=== PATIENT | female | born 1955 | race Caucasian/White ===

== ENCOUNTER → 2022-09-10 14:07 | Outpatient (BNVA) | payer BC, MEDICARE, SELFPAY | PROVIDERS: PCP Internal Medicine; Visit Provider Internal Medicine Rheumatology | DX: Z13.89 Encounter for screening for other disorder (principal) ==

== ENCOUNTER 2025-07-14 15:33 | Outpatient (AMB) | payer OTHER, MEDICARE, SELFPAY ==
--- NOTE | 2025-07-14 13:23 | A.OFFVIS_ITS ---
Intake Visit Reasons: follow up for stroke Allergies baclofen Allergy (Unknown, Verified 09/10/22 14:16) Unknown brimonidine (From Alphagan P) Allergy (Unknown, Verified 09/10/22 14:16) Unknown gabapentin Allergy (Unknown, Verified 09/10/22 14:16) Unknown insulin glargine (From Toujeo SoloStar U-300 Insulin) Allergy (Unknown, Verified 09/10/22 14:16) Unknown latex Allergy (Unknown, Verified 09/10/22 14:16) unknown levofloxacin Allergy (Unknown, Verified 09/10/22 14:16) unknown meperidine (From Demerol) Allergy (Unknown, Verified 09/10/22 14:16) Unknown metronidazole (From Flagyl) Allergy (Unknown, Verified 09/10/22 14:16) Unknown pregabalin (From Lyrica) Allergy (Unknown, Verified 09/10/22 14:16) Unknown Medication List - Last Reconciled 07/14/25 by Leigh Rivera MD acyclovir 200 mg PO DAILY PRN albuterol sulfate 90 mcg/actuation (ProAir HFA) 2 puffs inhalation Q4-6H PRN amlodipine 10 mg PO DAILY apixaban (Eliquis) 5 mg PO BID 30 days aspirin 81 mg PO DAILY atorvastatin 40 mg PO DAILY iwxhomnkwt-yccxgkmbeoask-kmqz 50-325-40 mg 1 tab PO Q4H PRN cholecalciferol (vitamin D3) 25 mcg PO DAILY ciclopirox 8% topical cyanocobalamin (vitamin B-12) 1,000 mcg PO DAILY dicyclomine 10 mg PO Q6H PRN dorzolamide-timolol 22.3-6.8 mg/mL (Cosopt) 1 drp ophthalmic (eye) BID dulaglutide (Trulicity) mg subcut famotidine 20 mg PO BID finasteride 2.5 mg PO DAILY furosemide 20 mg PO DAILY hydrochlorothiazide 25 mg PO DAILY hydrocodone-acetaminophen 5-325 mg 1 tab PO BID PRN insulin degludec (Tresiba FlexTouch U-100 insulin) 15 units subcut BEDTIME insulin detemir U-100 (Levemir FlexPen) 70 units subcut BEDTIME insulin lispro (Humalog KwikPen (U-100) Insulin) 1 sliding scale dose subcut USEASDIRECTD latanoprost 0.005% (Xalatan) 1 drp ophthalmic (eye) QPM levetiracetam 250 mg PO BID lidocaine 5% (Lidoderm) 2 patches topical DAILY lisinopril 40 mg PO DAILY loperamide 4 mg PO BID metformin 1,000 mg PO BID multivitamin with minerals 1 cap PO DAILY omeprazole 20 mg PO DAILY timolol 0.25% 1 drp ophthalmic (eye) DAILY HPI Comments Details: 69 yr old woman with h/o stroke, migraine, Sz and MCI. She fell 1 week ago and hit her head. She missed the bed as she was trying to sit to give medicine to her dog. Whole body hurts. headaches. tooth hurts. Memory is still not great. Forgetful and has trouble remembering appointments. Scared to drive. Loses things. Still has some lapses in time and waking confused. Not sleeping well at night. Gets palpitations.??She was seen at [facility] [place] 09/15/2023-09/17/2023 for TIA. Has marital issues with of 50 yrs. Has now moved to a small place with her and daughter. ?Hx of migraines in 20s. 05/01/23 CT showed new right temporal stroke with CTA showing occlusion of right M2 segment. MRA of neck did not show any vascular stenosis or occlusion. Has loss of sensation left hand. Before that she had a stroke on 03/26/23 - 03/29-, 04/04/23 - 04/06/23. Had numbness on L side of face, LUE heaviness, nausea/vomiting, felt floor was moving, difficulty ambulating. Symptoms occurred again with left sided numbness and dizziness and also right foot. Had multiple imaging studies. 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 She was seen by Dr. Khan, but no cause was found for the clotting. She had some vascular procedures done by Dr. Bo to recannulize it. Since then, she's had left arm pain.? She had an MRI of the cervical spine done 07/2021 which was apparently normal but the report is not available. ON LICENSE OF [facility] Medical History (Updated 07/14/25 @ 13:29 by Leigh Rivera MD) Fibromyalgia Esophageal reflux Glaucoma Migraine Functional diarrhea Obesity CTS (carpal tunnel syndrome) Tobacco abuse Peripheral polyneuropathy Atypical chest pain Osteopenia DVT (deep venous thrombosis) Disorder of carotid artery Hypertension Hypercholesteremia Diabetes Surgical History History of cholecystectomy Hx of colonoscopy Hx of hysterectomy Family History Mother Diabetes Hypertension Myocardial infarct Ovarian cancer Breast cancer Glaucoma Father Melanoma Diabetes Social History (Updated 09/10/22 @ 14:19 by NATHAN Balderrama) Alcohol intake: current Alcohol intake frequency: does not drink Patient Tobacco Use Status: Current everyday Tobacco user Cigarette Packs Per Day: 0.5 Review of Systems Const Details: General/Constitutional:? Change in appetitedenies.? Chillsdenies.? Fatiguedenies.? Feverdenies.? Weight gaindenies.? Weight lossdenies. ???Sleep:? Difficulty getting to sleepadmits.? Difficulty maintaining sleepadmits.? Urge to move legsdenies.? Teeth grindingdenies.? Shouting or Kicking during sleep denies.? Abnormal behavior during sleepdenies.? Excessive sleepdenies.? Snoring denies.? Daytime sleepinessdenies. ???Respiratory:? Shortness of breathdenies.? Chest paindenies.? Coughdenies. ???Cardiovascular:? Chest pain at restdenies.? Chest pain with exertiondenies.? Claudicationdenies .? Dizzinessdenies.? Fluid accumulation in the legsadmits.? Irregular heartbeat denies.? Palpitationsdenies. ???Gastrointestinal:? Abdominal paindenies.? Constipationdenies.? Diarrheaadmits.? Difficulty swallowingdenies.? Heartburnadmits.? Nauseadenies.? Rectal bleedingdenies. ???Genitourinary:? Frequent urinationadmits.? Urgencydenies.? Incontinenceadmits.? Erectile Dysfunctiondenies. ???Musculoskeletal:? Neck painadmits.? Back painadmits.? Muscle achesadmits.? Painful jointsadmits.? Sciaticadenies.? Weaknessdenies. ???Neurologic:? Difficulty swallowingdenies.? Balance difficultydenies.? Coordinationnormal.? Difficulty speakingdenies.? Dizzinessdenies.? Faintingdenies.? Gait abnormality admits.? Headacheadmits.? Loss of strengthdenies.? Loss of use of extremity denies.? Low back paindenies.? Memory lossadmits.? Seizuresdenies.? Ticsdenies.? Tingling/Numbnessadmits.? Transient loss of visiondenies.? Tremordenies. ???Psychiatric:? Anxietyadmits.? Auditory/visual hallucinationsdenies.? Delusionsdenies.? Depressed moodadmits.? Stressorsadmits.? Substance abusedenies.? Suicidal thoughtsdenies. Physical Exam Neuro Other: Neurological: Abnormal neurological findings:??Left angle of mouth droop.?Slight L eye ptosis. No field cut.?Slight dysarthria. Left fur weigher weakness. Mild generalized lower extremitiy weakness with?submaximal effort. Restriction of left shoulder abduction to 60 degrees with a frozen shoulder and severe pain on passive movement. There is no external rotation. There is no atrophy of the biceps, triceps and deltoid which appeared to have normal strength taking into consideration the pain of the shoulder. Walking with walker.?MMSE 24/30. Tearful at times.?Mental Status:??alert as below.?Cranial Nerves:??Pupils are equal, round and reactive to light. Fundoscopy shows normal disc bilaterally. External occular muscles are intact. Visual mayen are full,?slight L eye?ptosis. As above, left angle of mouth droop.?Facial sensations are normal. Tongue protrudes in midline. Palate elevates symmetrically. Shoulder shrugging is normal.?Motor Examination:??As above, otherwise normal muscle tone, bulk and strength,?No atrophy or fasciculations,?No drift of the extended upper extremities,?Deep tendon reflexes are trace.?Straight Leg Raising:??90 degrees.?Sensory Exam:??Normal light touch, temperature, pinprick, vibration and joint-position sensations?,?Rhomberg sign is absent.?Coordination:??no ataxia,?no titubation,?iljchl-fw-pdug, fsax-szlw-bhhw test and rapid alternating movements were normal.?Gait Exam:??walking with walker.?Cerebellar Signs:??Pklcfl-ov-skwf and onqy-hd-uaiw is normal,?no dysdiadochokinesia?.?Extrapyramidal System:??No tremor, rigidity with normal facial expressions,?No bradykinesia, no bradyphrenia. Normal arm swing and posture. No propulsion or retropulsion.?Speech:??Slight?dysarthria.? Mini Mental Status Exam: Level of Consciousness:??Alert.?Orientation:??Knows correct year, month, day and season. Not date.?Knows correct city, county and state. Knows correct location and floor..?Registration:??Able to register 3 objects.?Attention:??Serial 7's performed accurately to 93.?Recall:??Able to recall?2 out of 3 objects.?Language:??Normal spontaneous speech, fluency, repetition,naming, comprehension, reading and writing.?Total Score:??.? General Examination: GENERAL APPEARANCE:??normal,?in no acute distress.?HEART:??S1, S2 normal,?no murmurs.?LUNGS:??clear anteriorly and posteriorly.?MUSCULOSKELETAL: ??normal.?EXTREMITIES:??no edema.?PSYCH:??alert as above. Tearful at times.? Assessment & Plan Assessment & Plan (1) CTS (carpal tunnel syndrome): Comment: 08/26/24 NCV/EMG UE Mild to moderate Carpal tunnel syndrome on the left, worse since last NCV/EMG done in 2021. Borderline Carpal tunnel syndrome on the right, slight improvement since NCV/EMG done 2021. Normal EMG in the left C5-T1 innervated muscles. Code(s): G56.00 - Carpal tunnel syndrome, unspecified upper limb Category: Medical (2) Stroke: Code(s): I63.9 - Cerebral infarction, unspecified Category: Medical (3) MCI (mild cognitive impairment): Code(s): G31.84 - Mild cognitive impairment of uncertain or unknown etiology Category: Medical (4) Seizure disorder: Code(s): G40.909 - Epilepsy, unspecified, not intractable, without status epilepticus Category: Medical (5) Medication overuse headache: Code(s): G44.40 - Drug-induced headache, not elsewhere classified, not intractable Category: Medical Plan continue current meds Coding Level of Care Code Est Pt Level 4 (61393) Diagnoses CTS (carpal tunnel syndrome) G56.00 Stroke I63.9 MCI (mild cognitive impairment) G31.84 Seizure disorder G40.909 Medication overuse headache G44.40
--- OUTSIDE RECORDS SUMMARY | 2025-07-14 17:47 | XMS_ITS ---
Author Name [facility] [place] Organization Unknown Care Team Organization Name Specialty Phone Email Start Date End [facility] 07/13/2025 [facility] 02/21/2023 04/06/20 [facility] 10/24/2022 04/06/20 [facility] 06/26/2022 04/06/2024
--- OUTSIDE RECORDS SUMMARY | 2025-07-14 17:47 | XMS_ITS | Clinical Summary ---
Author Organization [facility] Address [address] [place] [address] Care Team Providers Care Brain Picker Name Role Phone Lv Bunch MD Primary Care Provider [phone] Allergies Active Allergy Reactions Criticality Noted Date Comments Acetaminophen 05/28/2023 Intermediate nausea/vomiting Brimonidine 02/05/2020 Severe rash Baclofen 05/28/2023 Severe rash Codeine 02/05/2020 Hallucinate, hives Meperidine 02/05/2020 Metronidazole 02/05/2020 rash Gabapentin 05/28/2023 dizziness Glipizide 05/28/2023 hives Metformin 02/05/2020 Insulin Glargine 05/28/2023 Mild skin rash - cannot use lantus Iodinated Contrast Media 02/05/2020 Hives, cough Ketorolac 05/28/2023 Latex 02/05/2020 hives Levofloxacin 02/05/2020 Pregabalin 02/05/2020 hives Oxycodone 05/28/2023 N&V Penicillins 05/28/2023 Intermediate rash & swelling Saxagliptin 05/28/2023 Medications Medication Sig Dispensed Refills Start Date End Date Status furosemide (LASIX) 20 MG tablet Take 20 mg by mouth 2 (two) times a day. 0 Active lisinopril (PRINIVIL,ZESTRIL) tablet 40 mg Take 40 mg by mouth daily. 0 Active sodium chloride 0.9 % nebulizer solution Take 3 mL by nebulization as needed. 0 Active hydroCHLOROthiazide (HYDRODIURIL) tablet 25 mg Take 25 mg by mouth daily. 0 Active omeprazole (PriLOSEC) 20 MG capsule Take 20 mg by mouth daily. 0 Active butalbital-acetamin ophen-caffeine (ESGIC) 50-325-40 MG per tablet Take 1 tablet by mouth every 4 (four) hours as needed for pain. 0 Active HYDROcodone-acetami nophen (NORCO) 5-325 MG per tablet Take 1 tablet by mouth every 6 (six) hours as needed for pain. 0 Active Tavaborole 5 % SOLN Apply topically. 0 Active Clotrimazole-Betame thasone (LOTRISONE EX) Apply topically. 0 Active atorvastatin (LIPITOR) tablet 20 mg Take 20 mg by mouth daily. 0 Active metFORMIN (GLUMETZA) 1000 MG (MOD) 24 hr tablet Take 1,000 mg by mouth every morning with breakfast. 0 Active amLODIPine (NORVASC) tablet 5 mg Take 5 mg by mouth daily. 0 Active Albuterol Sulfate 108 (90 Base) MCG/ACT AEPB Inhale into the lungs. 0 Active Insulin Lispro, 1 Unit Dial, (HumaLOG KWIKPEN) 100 UNIT/ML SOPN Inject under the skin. 0 Active latanoprost (XALATAN) 0.005 % ophthalmic solution 1 drop every night at bedtime. 0 Active Efinaconazole (JUBLIA) 10 % SOLN Apply topically. 0 Active glucose blood test strip 1 each by Other route as needed for other. Use as instructed 0 Active betamethasone valerate (VALISONE) 0.1 % cream Apply topically 2 (two) times a day. 0 Active ketoconazole (NIZORAL) 2 % cream Apply topically daily. 0 Active acyclovir (ZOVIRAX) 400 MG tablet Take 400 mg by mouth every 4 (four) hours while awake. 0 Active Blood Glucose Monitoring Suppl ECTOR by Does not apply route. 0 Active Lancets (ACCU-CHEK SOFT TOUCH) lancets 1 each by Other route as needed for other. Use as instructed 0 Active Spacer/Aero-Hold Chamber Mask MISC by Does not apply route. 0 Active timolol (TIMOPTIC) 0.5 % ophthalmic solution 1 drop 2 (two) times a day. 0 Active GLYCERIN-POLYSORBAT E 80 OP Apply to eye. 0 Active amitriptyline (ELAVIL) tablet 50 mg Take 50 mg by mouth every night at bedtime. 0 Active apixaban (ELIQUIS) 2.5 MG TABS tablet Take by mouth every 12 (twelve) hours. 0 Active Insulin Degludec 100 UNIT/ML SOPN Inject 65 Units under the skin. 0 Active Active Problems No known active problems Social History Tobacco Use Types Packs/Day Years Used Date Smoking Tobacco: Every Day Smokeless Tobacco: Never Alcohol Use Standard Drinks/Week Comments No 0 (1 standard drink = 0.6 oz pur e alcohol) Sex and Gender Information Value Date Recorded Sex Assigned at Not on file Gender Identity Not on file Sexual Orientation Not on file Job Start Date Occupation Industry Not on file Not on file Not on file Last Filed Vital Signs Vital Sign Reading Time Taken Comments Blood Pressure 81/59 05/28/2023 11:42 AM EDT Pulse 65 05/28/2023 11:42 AM EDT Temperature 35.9 C (96.7 F) 05/28/2023 11:42 AM EDT Respiratory Rate - - Oxygen Saturation 98% 05/28/2023 11: 42 AM EDT Inhaled Oxygen Concentration - - Weight 77.5 kg (170 lb 12.8 oz) 023 11:42 AM EDT Height 161.3 cm (5' 3.5 ) 05/28/2023 11 :42 AM EDT Body Mass Index 29.78 05/28/2023 11:42 AM EDT Plan of Treatment Health Maintenance Due Date Last Done Comments Hepatitis C Screening 1955 COVID-19 Vaccine (#1) [birth year]19/1956 Depression Screening 1966 Preventative Health Evaluation 1972 Colon Cancer Screening (Colonoscopy) 1999 Breast Cancer Screening (Mammogram) 2004 Pneumococcal Vaccine (2 of 2 - PCV) 07/22/2007 07/22/2006 Fall Risk Assessment 2019 Osteoporosis Screening (DEXA Scan) 2019 Influenza Vaccine (#1) 2025 , 05/23/2018, 05/06/2016, Additional history exists RSV Adult > 60+ Yrs or (1 - 1-dose 75+ series) 2029 DTap / Tdap / Td (3 - Td or Tdap) 10/26/2030 10/26/2020, 10/24/2011 Shingrix-Zoster Vaccine Completed 10/10/2020, 07/30 Hepatitis B Vaccines Aged Out No long er eligible based on patient's age to complete this topic RSV Ped < 20 months Aged Out No longe r eligible based on patient's age to complete this topic Care Teams Brain Picker Relationship Specialty Start Date End Date Lv Bunch MD PCP - General Internal Medicine 02/05/20
--- OUTSIDE RECORDS SUMMARY | 2025-07-14 17:47 | XMS_ITS | Clinical Summary ---
Author Organization [facility] Address [address] [place] [address] Phone Care Team Providers Care Office Worker Name Role Phone Lv Bunch MD Primary Care Provider [phone] Allergies Active Allergy Reactions Criticality Noted Date Comments Acetaminophen 05/28/2023 Intermediate nausea/vomiting Adhesive Tape-Silicones Rash 08/22/2023 Surgical Tape Baclofen 10/07/2019 ? Itching and face swelling Brimonidine Nausea And Vomiting 04/28/2013 Alphagan P;Nausea and vomiting Codeine 10/09/2005 itching Perflutren Lipid Microspheres Other,Respiratory Issues High 06/22/2024 Severe low back pain per patient and difficult breathing. Rapid response initiated. Factor Viii Rec,Fc Fusion Prot Rash 06/19/2024 Gabapentin Dizziness 07/26/2020 Mood changes and dizziness Glipizide 05/28/2023 hives Insulin Degludec 12/28/2022 Blisters in mouth Insulin Glargine 10/13/2019 itching Iodinated Contrast Media 10/09/2005 Hives, cough Throat swelling, flushing IV Benadryl Ketorolac 05/28/2023 Saxagliptin-Metformin Unknown 06/19/2024 Not allergic to metformin Latex 02/05/2020 hives Levofloxacin Swelling 03/15/2006 Swelling, hives, trouble breathing Meperidine Hcl 10/09/2005 itching Metronidazole Hcl 10/09/2005 Throat swelling and flushing Other Hives 04/02/2014 Glucophage Xr [Fd&c Yellow #10 [facility]-metformin] No hives with metformin immediate release Oxycodone 05/28/2023 N&V Penicillins 05/28/2023 Intermediate rash & swelling Pregabalin 02/05/2020 Lyrica;Mood changes and dizziness Saxagliptin 05/28/2023 Medications lancets ([employer]Touch Delica Plus Lancet) 30 gauge USE TO TEST BLOOD GLUCOSE THREE TIMES DAILY 08/30/19 24 Active loperamide (IMODIUM) 2 mg capsule Take 1 Capsule by mouth 4 times daily as needed for Diarrhea. 08/22/19 24 Active dorzolamide-lloyd loL (COSOPT) 22.3-6.8 mg/mL ophthalmic solution Administer 1 drop into both eyes 2 (two) times a day. 03/18/20 21 Active CHOLECALCIFEROL, VITAMIN D3, ORAL Take by mouth 1 (one) time each day. Active polysorbate 80/glycerin (REFRESH DRY EYE THERAPY OPHT) apply to the eye. Prn Active brimonidine (ALPHAGAN) 0.2 % ophthalmic solution Administer 1 drop into the left eye 2 (two) times a day. 06/02/20 24 Active latanoprost (XALATAN) 0.005 % ophthalmic solution Administer 1 drop into both eyes at bedtime. 05/26/20 24 Active valACYclovir (VALTREX) 500 mg tablet valacyclovir (Valtrex) 500 MG tablet Take 1 Tablet by mouth 2 times daily for 3 days. 6 tablet 5 10/08/19 25 026 Active apixaban (Eliquis) 5 mg tablet Take 0.5 tablets (2.5 mg total) by mouth 2 (two) times a day. 10/10/19 25 Active hyoscyamine (ANASPAZ,LEVSIN) 0.125 mg tablet TAKE 1 TABLET BY MOUTH EVERY 4 HOURS NEEDED FOR CRAMPING 60 tablet 10/20/19 25 Active blood-glucose,re ceiver,cont (FreeStyle Nadeen 3 [place]) miscIndications: Type 2 diabetes mellitus with hypoglycemia without coma, with long-term current use of insulin ([facility] V24, [facility] V28) Check sugars regularly 1 each 03/02/20 25 Active blood-glucose sensor (FreeStyle Nadeen 3 Plus Sensor) deviceIndication s:Type 2 diabetes mellitus with hypoglycemia without coma, with long-term current use of insulin ([facility] V24, [facility] V28) Box = Kit = IMAN, 2 kit 11 03/02/20 25 Active alcohol swabs pads, medicatedIndicat ions:Type 2 diabetes mellitus with hypoglycemia without coma, with long-term current use of insulin ([facility] V24, [facility] V28) Alcohol Swabs (ALCOHOL WIPES) 70 % Pads- 1 Each by Does not apply route 6 times daily. Use to check blood sugar-Alcohol Swabs (ALCOHOL WIPES) 70 % Pads- 1 Each by Does not apply route 6 times daily. Use to check blood sugar- 200 each 3 05/05/20 25 Active aspirin 81 mg EC tablet Take 1 tablet (81 mg total) by mouth 1 (one) time each day. 90 tablet 05/05/20 25 Active omeprazole (PriLOSEC) [address] capsule Take 1 capsule (20 mg total) by mouth 1 (one) time each day. Do not crush or chew. 90 capsule 05/05/20 25 Active pen needle, diabetic (BD Ultra-Fine Short Pen Needle) 31 gauge x 5/16 needleIndication s:Type 2 diabetes mellitus with hypoglycemia without coma, with long-term current use of insulin ([facility] V24, [facility] V28) Insulin Pen Needle (B-D ULTRAFINE III SHORT PEN) 31G X 8 MM Misc- DIRECTED THREE TIMES DAILYInsulin Pen Needle (B-D ULTRAFINE III SHORT PEN) 31G X 8 MM Misc- DIRECTED THREE TIMES DAILYInsulin Pen Needle (B-D ULTRAFINE III SHORT PEN) 31G X 8 MM Misc- DIRECTED THREE TIMES DAILY 200 each 2 05/05/20 25 Active metFORMIN (GLUCOPHAGE) 1,000 mg tabletIndication s:Insulin dependent type 2 diabetes mellitus ([facility] V24, [facility] V28),Type 2 diabetes mellitus with hypoglycemia without coma, with long-term current use of insulin ([facility] V24, [facility] V28) Take 1 tablet (1,000 mg total) by mouth 2 (two) times a day. 180 tablet 05/09/20 25 Active famotidine (PEPCID) 20 mg tablet Take 1 tablet (20 mg total) by mouth 2 (two) times a day if needed for heartburn. 180 each 05/09/20 25 025 Active blood sugar diagnostic (FreeStyle Lite Strips) test stripIndications :Type 2 diabetes mellitus with diabetic polyneuropathy, with long-term current use of insulin ([facility] V24, [facility] V28) Use as instructed 300 strip 3 05/18/20 25 Active insulin glargine,hum.rec .anlog (Basaglar KwikPen U-100 Insulin) 100 unit/mL (3 mL) injection penIndications:I nsulin dependent type 2 diabetes mellitus (CMS/[facility] V24, CMS/HCC V28) Take 40 units at bedtime, increase by 2 units every 3 days with a max of 50 units. 05/25/20 25 Active atorvastatin (LIPITOR) 20 mg tablet Take 1 tablet (20 mg total) by mouth at bedtime. 90 tablet 06/02/20 25 Active lisinopril (PRINIVIL,ZESTRI L) 40 mg tablet Take 1 tablet (40 mg total) by mouth 1 (one) time each day. 30 tablet 4 06/21/20 25 Active insulin lispro (HumaLOG KwikPen Insulin) 100 unit/mL injection pen INJECT UNDER THE SKIN THREE TIMES A DAY. 100-150: 8U, 151-200: 16U, 201-250: 20U, 251-300 24U, 301-350: 28U, 351-400: 30U (BULK) 15 mL 5 06/21/20 25 Active butalbital-aceta minophen-caffein e (FIORICET, ESGIC) 50-325-40 mg per tablet Take 1 tablet by mouth every 4 (four) hours if needed for headaches. 30 tablet 3 06/21/20 25 Active amLODIPine (NORVASC) 5 mg tablet Take 1 tablet (5 mg total) by mouth 1 (one) time each day. 30 tablet 1 06/21/20 25 026 Active albuterol HFA (PROAIR HFA ; PROVENTIL HFA ; VENTOLIN HFA) 90 mcg/actuation inhaler Inhale 2 puffs by mouth every 4 (four) hours if needed for wheezing. 18 g 06/21/20 25 Active BIOTIN ORAL Take by mouth 1 (one) time each day. 025 Discontin ued(Thera py completed ) amLODIPine (NORVASC) 5 mg tablet Take 1 tablet (5 mg total) by mouth 1 (one) time each day. 30 tablet 1 10/05/19 25 025 Discontin ued(Reord er) albuterol HFA (PROAIR HFA ; PROVENTIL HFA ; VENTOLIN HFA) 90 mcg/actuation inhaler Inhale 2 puffs by mouth every 4 (four) hours if needed for wheezing. 18 g 12/23/19 25 025 Discontin ued(Reord er) butalbital-aceta minophen-caffein e (FIORICET, ESGIC) 50-325-40 mg per tablet TAKE 1 TABLET BY MOUTH EVERY 4 HOURS NEEDED FOR HEADACHE 30 tablet 3 02/09/20 25 025 Discontin ued(Reord er) lisinopril (PRINIVIL,ZESTRI L) 40 mg tablet TAKE 1 TABLET (40 MG TOTAL) BY MOUTH 1 (ONE) TIME EACH DAY. 30 tablet 4 02/09/20 25 025 Discontin ued(Reord er) insulin lispro (HumaLOG KwikPen Insulin) 100 unit/mL injection pen INJECT UNDER THE SKIN THREE TIMES A DAY. 100-150: 8U, 151-200: 16U, 201-250: 20U, 251-300 24U, 301-350: 28U, 351-400: 30U (BULK) 15 mL 5 06/07/20 25 025 Discontin ued(Reord er) Active Problems Problem Noted Date Diagnosed Date CVA (cerebral vascular accident) ([facility] V24, C GA/[facility] V28) 03/29/2025 Hoarse 01/28/2025 Transient neurological symptoms 10/09/2024 Hemiplga following cerebral infrc affecting left nondom side ([facility] V24, [facility] V28) 08/03/2024 Type 2 diabetes mellitus wit h both eyes affected by mild nonproliferative retinopathy without macular edema, with long-term current use of insulin ([facility] V24, [facility] V28) 08/03/2024 Chronic atrial fibrillation ([facility] V24, [facility] V28) 08/03/2024 Unspecified chronic bronchitis ([facility] V24, [facility] V28) 08/03/2024 Gout, unspecified 08/03/2024 Myalgia 08/03/2024 Irritable bowel syndrome with diarrhea Body mass index 28.0-28.9, adult 08/03/2024 Macular degeneration 08/03/2024 superintendent terminal (current) use of aspirin 08/03/2024 halfway (current) use of anticoagulants 2023 halfway current use of oral hypoglycemic drug 08/03/2024 Personal history of venous thrombosis and emboli sm 08/03/2024 History of tobacco use 08/03/2024 History of malignant neoplasm of large intestine 08/03/2024 Personal history of other malignant neoplasm of skin 08/03/2024 Personal history of malignant neoplasm of breast 08/03/2024 Personal history of malignant neoplasm of ovary 08/03/2024 Type 2 diabetes mellitus wit h diabetic polyneuropathy ([facility] V24, [facility] V28) 07/09/2024 Insulin dependent type 2 radha betes mellitus ([facility] V24, [facility] V28) 06/20/2024 Assessment & Plan (04/12/2025 10:13 PM EDT): Stroke ([facility] V24, [facility] V28) 06/19/2024 Type 2 diabetes mellitus wit h hypoglycemia without coma, with long-term current use of insulin ([facility] V24, [facility] V28) 06/01/2024 Arm DVT (deep venous thrombo embolism), acute, left ([facility] V24, [facility] V28) 06/03/2023 Overview (06/01/2024): Followed by Dr. Khan Cerebrovascular accident (CVA) ([facility] V24, [facility] V28) 04/10/2023 Subarachnoid hemorrhage ([facility] V24, [facility] V2 8) 04/10/2023 Overview (06/01/2024): Under the setting of CVA March 2023, and active anticoagulation with Eliquis with history of DVT Renal cyst 03/15/2023 Splinter 01/27/2022 Trigger index finger of right hand 01/27/2022 Onychomycosis 11/27/2021 Chest pain 07/19/2021 Overview (06/01/2024): Chest pain Disorder of carotid artery (CMS/HCC V24) 021 Overview (06/01/2024): Disorder of carotid artery Contact dermatitis due to cosmetics 12/07/2020 Partial nontraumatic tear of left rotator cuff 0 09/10/2020 Chronic left shoulder pain 04/01/2019 Osteopenia of spine 05/30/2018 Vitamin D deficiency 05/30/2018 Osteopenia 05/05/2018 Generalized abdominal pain 10/10/2016 Atypical chest pain 08/10/2016 Overview (06/01/2024): Nuclear stress negative July 2016 Peripheral polyneuropathy 02/02/2016 Carpal tunnel syndrome on left 08/17/2015 Overview (06/01/2024): Moderate to severe on EMG/NCT Jul. 2014 Obesity 09/01/2014 Functional diarrhea 03/23/2014 Overview (06/01/2024): Childhood onset, lifelong history of chronic functional diarrhea. Herpes simplex labialis 08/04/2013 Intractable migraine without status migrainosus 04/15/2012 Unspecified glaucoma(365.9) 10/24/2011 Pure hypercholesterolemia 07/22/2006 Depression 03/04/2006 Esophageal reflux 03/04/2006 Fibromyalgia 01/21/2006 Overview (06/01/2024): Onset ? . 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, with long-term current use of insulin (CMS/HCC V24, CMS/HCC V28) (Primary Dx); Stress at home; Primary hypertension 06/11/2025 1:30 PM EDT Office Visit Orthopedic Surgery [facility] [address] [facility] [address] [place] [phone] Lili Mcneil PA De Quervain's tenosynovitis (Primary Dx) 06/10/2025 Telephone Adult [address] [phone] Lv Bunch MD 05/25/2025 1:30 PM EDT Office Visit [address] [phone] Katie Rushing PA Type 2 diabetes mellitus with hypoglycemia without coma, with long-term current use of insulin (CMS/HCC V24, CMS/HCC V28) (Primary Dx); Insulin dependent type 2 diabetes mellitus (CMS/HCC V24, CMS/HCC V28); Primary hypertension; Pure hypercholesterolemia 05/19/[address] [phone] Lv Bunch MD 05/07/2025 Telephone Gastroenterology [facility] 175 [facility] 175 [facility] [address] [place] [phone] Tamera Galvan NP 04/30/2025 1:30 PM EDT Office Visit Orthopedic Surgery [facility] [address] [facility] [address] [place] [phone] Lili Mcneil PA De Jose's tenosynovitis (Primary Dx) 04/28/2025 Telephone Endocrinology [address] [phone] Katie Rushing PA 04/27/2025 Telephone Adult Medicine [address] [phone] Lv Bunch MD 04/26/2025 12:18 AM EDT - 04/26/2025 12:33 AM EDT Emergency [facility] Emergency [address] [place] [phone] Acute cystitis without hematuria (Primary Dx); Type 2 diabetes mellitus with hyperglycemia, with long-term current use of insulin ([facility] V24, [facility] V28); Insulin dependent type 2 diabetes mellitus ([facility] V24, [facility] V28) Discharge Disposition: Home or Self Care 04/21/2025 Telephone Adult Medicine [address] [phone] Lv Bunch MD 04/15/2025 3:30 PM EDT - 04/15/2025 10:51 PM EDT [facility] Emergency [address] [place] [phone] Lillie Brito MD Mersier, Jasmine, DO Goebel, Mathew, MD Dizziness (Primary Dx); Genital herpes simplex, unspecified site; Insulin dependent type 2 diabetes mellitus ([facility] V24, [facility] V28); Type 2 diabetes mellitus with hypoglycemia without coma, with long-term current use of insulin ([facility] V24, [facility] V28) Discharge Disposition: Home or Self Care 04/15/2025 Telephone Adult Medicine [address] [phone] Lv Bunch MD from Last 3 Months Immunizations Immunization Administration Dates Next Due Influenza Quadravalent, 0.5m l (Fluad) 65yo and older 07/27/2021 Influenza Quadravalent, 0.5m l (Fluzone High-dose) 65yo and older 08/09/2022 Influenza Quadravalent, MDCK , 0.5ml, preservative free (Flucelvax) 6mo and older 06/04/2017 Influenza Quadrivalent, 0.5m l, preservative free (Fluarix; FluLaval; Fluzone) ages 6mo and older (Afluria) 3yo and older 05/22/2018 Influenza trivalent, 0.5mL ( Fluad) 65yo and older 05/05/2024,05/04/2020 Influenza trivalent, 0.5mL ( Fluzone High-dose) 65yo and older 05/05/2024 Influenza trivalent, 0.5mL, preservative free (Fluarix; FluLaval; Fluzone) ages 6mo and older (Afluria) 3 years and older 05/04/2020,05/23/2018,05/06/2016,05/27,06/13/2014,05/02/2012,10/24/2011 ,05/03/2009,07/14/2008,05/29/2007,06/20 Influenza trivalent, with pr eservative (Fluzone; Afluria) 6mo and older 05/06/2016,05/27/2015,06/13/2014,05/02,10/24/2011,05/03/2009,07/14/2008 ,05/29/2007,07/16/2006 Influenza, Unspecified 08/09/2022,05/02/2021, Moderna SARS-CoV-2 COVID-19, mRNA, LNP-S, preservative free 07/11/2021,01/05/2021,12/08/2020 PPD Test 09/03/2003 Pneumococcal conjugate 13 va lent (Prevnar 13, PCV13) 2mo and older 07/30/2020 Pneumococcal conjugate 20 va lent (Prevnar 20, PCV 20) 2mo and older 02/28/2024 Pneumococcal polysaccharide 23 valent (Pneumovax 23) 2yo and older 05/22/2016,07/22/2006 Td, Unspecified 03/25/2001 Tdap Tetanus diptheria acell ular pertussis (Boostrix; Adacel) 7yo and older 10/26/2020,10/24/2011 Zoster Live 08/03/2015 Zoster recombinant (Shingrix ) 19yo and older 10/10/2020,07/30/2020 Surgical History Surgery Date Site/Laterality Comments CHOLECYSTECTOMY PROCEDURE: HISTORICAL CHOLECYSTECTOMY OTHER SURGICAL HISTORY PROCEDURE: HISTORICAL TOTAL HYSTERECTOMY W/O BSO; COMMENT: likely BSO COLONOSCOPY 11/22 PROCEDURE: WI COLONOSCOPY STOMA DX INCLUDING COLLJ SPEC SPX; COMMENT: negative Medical History Medical History Date Comments Myalgia and myositis, unspecified 01/21/2006 DX:Myalgia and myositis, unspecified Type II or unspecified type diabetes mellitus without mention of complication, uncontrolled 11/24/2005 DX:Type II or unspecified t ype diabetes mellitus without mention of complication, uncontrolled Essential hypertension, benign 11/24/2005 D X:Essential hypertension, benign Migraine, unspecified, with intractable migraine, so stated, without mention of status migrainosus DX:Migraine, uns pecified, with intractable migraine, so stated, without mention of status migrainosus Depressive disorder, not els ewhere classified 03/04/2006 DX:Depressive disorder, not elsewhere classified Esophageal reflux 03/04/2006 DX:Esophageal reflux Pure hypercholesterolemia 07/22/2006 DX:Pur e hypercholesterolemia Glaucoma 10/24/2011 DX:Glaucoma Carpal tunnel syndrome on both sides 08/17/2015 DX:Carpal tunnel syndrome on both sides; COMMENT: Moderate to severe on EMG/NCT 2014 Atypical chest pain 08/10/2016 DX:Atypical chest pain; COMMENT: Nuclear stress negative July 2016 Renal cyst, left DX:Renal cyst, left; COMMENT: Will follow clinically with repeat ultrasound Cerebrovascular disease DX:Cereb rovascular disease Brain bleed (CMS/HCC V24, CM S/HCC V28) DX:Brain bleed ([facility]) Diarrhea DX:Diarrhea Fibromyalgia DX:Fibromyalgia Hx of migraine headaches DX:Hx o f migraine headaches Nausea DX:Nausea Irritable bowel syndrome DX:Irri table bowel syndrome Abdominal cramping DX:Abdominal cramping Unspecified chronic bronchit is (CMS/HCC V24, CMS/HCC V28) 08/03/2024 Macular degeneration 08/03/2024 History of malignant neoplas m of large intestine 08/03/2024 Personal history of malignan t neoplasm of breast 08/03/2024 Personal history of malignan t neoplasm of ovary 08/03/2024 Family History Medical History Relation Name Comments Diabetes Brother facing ESRD Glaucoma Brother Diabetes Daughter Hypertension Daughter Cataracts Father Diabetes Father hypertension, m elanoma Glaucoma Father Stroke Father Ovarian cancer Maternal Grandmother Breast cancer Mother Cataracts Mother Diabetes Mother hypertension, M I Glaucoma Mother Other: heart failure Mother Ovarian cancer Mother and multiple cousins Breast cancer Sister 1 66 Glaucoma Sister 1 66 Diabetes Sister 2 Diabetes Son Hypertension Son Blindness Neg Hx Colon cancer Neg Hx Macular degeneration Neg Hx Strabismus Neg Hx Relation Name Status Comments Brother Daughter Alive Father Maternal Grandfather Maternal Grandmother Mother Paternal Grandfather Paternal Grandmother Sister 1 66 Alive Sister 2 Son Social History Tobacco Use Types Packs/Day Years Used Date Smoking Tobacco: Former Cigarettes 29.5 0 08/19/1993 - 02/25/2023 Smokeless Tobacco: Current Tobacco Cessation:Ready to Q uit: Not Asked; Counseling Given: Not Answered Alcohol Use Standard Drinks/Week Comments No 0 (1 standard drink = 0.6 oz pur e alcohol) Interpersonal Safety Answer Date Record ed Physical Abuse Unrecognized value 03/29/2025 Verbal Abuse Unrecognized value 03/29/2025 Comments Unknown Sex and Gender Information Value Date Recorded Sex Assigned at Female 07/11/2024 1:16 PM EST Legal Sex Female 12:59 AM EST Gender Identity Female 07/11/2024 1:16 PM EST Sexual Orientation Straight 07/11/2024 1: 16 PM EST Obstetrics History Last Filed Vital Signs Vital Sign Reading Time Taken Comments Blood Pressure 136/79 06/21/2025 2:26 PM EST Pulse 71 06/21/2025 2:26 PM EST Temperature 36.8 C (98.3 F) 06/21/2025 2:26 PM EST Respiratory Rate 14 06/21/2025 2:26 PM EST Oxygen Saturation 98% 04/25/2025 10: 17 PM EDT Inhaled Oxygen Concentration - - Weight 79.7 kg (175 lb 12.8 oz) 06/21/2025 2:26 PM EST Height 160 cm (5' 3 ) 06/21/2025 2:26 PM EST Body Mass Index 31.14 06/21/2025 2:26 PM EST Plan of Treatment Upcoming Encounters Date Type Department Care Team (Late st Contact Info) Description 07/23/2025 1:30 PM EST Office Visit Orthopedic Surgery - [place] [address] [place] [phone] Lili Mcneil PA [address] [place] [address] [place] [phone] 08/30/2025 3:30 PM EST Office Visit Endocrinology - [place] [id number] [place] [phone] Katie Rushing PA [address] [place], [place] 09/29/2025 2:45 PM EST Office Visit [facility] [place] [address] [place], [place] [phone] Lv Bunch MD [address] [place], [place] 02/04/2026 9:15 AM EDT Ancillary Procedure [facility] [address] [facility] [address] [place] [phone] 02/16/2026 2:00 PM EDT Office Visit Vascular Surgery - [place] [address] [facility] [address] [place] [phone] Dimple James MD [address] [place] [phone] Health Maintenance Due Date Last Done Comments RSV Immunization Adult Patients (1 - Risk 50-74 years 1-dose series) 2004 Colorectal Cancer Screening: Colonoscopy 12/25/2020 12/26/2015 Medicare Annual Wellness Visit 07/28/2022 Social Influencers of Health Screening 07/28/2022 Diabetes: Annual Retina Eye Exam 06/14/2024 06/14/2023 Depression Screening 08/19/2024 Diabetes: Annual Foot Exam 02/27/2025 02/28/2024 Diabetes: Annual Urine Albumin-Creatinine Ratio (uACR) 03/17/2025 03/17/2024 COVID-19 Vaccine ( season) 2025 07/11/2021, 01/05/2021, 12/08/2020 Influenza Vaccine (#1) 2025 , 05/05/2024, 08/09/2022, Additional history exists Diabetes: Blood Sugar Control Test (HGBA1C) 08/17/2025 02/15/2025, 10/09/2024, 03/17/2024, Additional history exists Breast Cancer Screening 03/20/2026 03/20/20 24, 03/20/2024, 03/15/2023, Additional history exists Falls Risk Assessment 03/30/2026 03/30/2025, 023 Diabetes: Annual GFR (Glomerular Filtration Rate) 04/15/2026 04/15/2025, 03/30/2025, 03/29/2025, Additional history exists Hypertension/CHF/CAD Annual BMP Blood Test 04/15/2026 04/15/2025, 03/30/2025, 03/29/2025, Additional history exists Osteoporosis Screening (Bone Density Screening) 05/05/2028 05/05/2018 Cholesterol Screening (Lipid Panel) 03/30/2030 03/30/2025, 10/10/2024, 06/20/2024, Additional history exists DTaP,Tdap,and Td Vaccines (4 - Td or Tdap) 10/26/2030 10/26/2020, 10/24/2011, 03/25/2001 Zoster Vaccines Completed 10/10/2020, 07/19, 08/03/2015 Pneumococcal Vaccine: 50+ Years Completed 02/28/2024, 07/30/2020, 05/22/2016, Additional history exists Hepatitis C Screening Completed 03/17/2024 HIB Vaccines Aged Out No longer eligi ble based on patient's age to complete this topic HPV Vaccines Aged Out No longer eligi ble based on patient's age to complete this topic Hepatitis A Vaccines Aged Out No long er eligible based on patient's age to complete this topic Hepatitis B Vaccines Aged Out No long er eligible based on patient's age to complete this topic IPV Vaccines Aged Out No longer eligi ble based on patient's age to complete this topic MMR Vaccines Aged Out No longer eligi ble based on patient's age to complete this topic Meningococcal ACWY Vaccine Aged Out N o longer eligible based on patient's age to complete this topic Meningococcal B Vaccine Aged Out No l onger eligible based on patient's age to complete this topic RSV Immunization Patients Under 20 months Aged Out No longer eligible based on patient's age to complete this topic Varicella Vaccines Aged Out No longer eligible based on patient's age to complete this topic Procedures Procedure Name Priority Date/Time Associated Diagnosis Comments POC GLUCOSE Routine 05/25/2025 2:06 PM EDT Insulin dependent type 2 diabetes mellitus ([facility] V24, [facility] V28) POCT GLUCOSE BLOOD Routine 04/26/2025 12 :19 AM EDT ECG ANNOTATED 04/16/2025 POCT GLUCOSE BLOOD Routine 04/15/2025 9: 17 PM EDT GUTIERREZ URINE CULTURE TUBE STAT 04/15/2025 6:48 PM EDT URINALYSIS WITH REFLEX MICROSCOPIC AND CULTURE STAT 04/15/2025 6:48 PM EDT URINALYSIS WITH REFLEX MICROSCOPIC AND CULTURE STAT 04/15/2025 6:48 PM EDT POCT GLUCOSE BLOOD Routine 04/15/2025 5: 29 PM EDT XR CHEST 1 VIEW STAT 04/15/2025 4:49 PM EDT B-TYPE NATRIURETIC PEPTIDE STAT 04/15/2025 4:46 PM EDT TROPONIN I HIGH SENSITIVITY STAT 04/15/2025 4:46 PM EDT CBC WITH AUTO DIFFERENTIAL STAT 04/15/2025 4:46 PM EDT MAGNESIUM STAT 04/15/2025 4:46 PM EDT BASIC METABOLIC PANEL STAT 04/15/2025 4:46 PM EDT CBC AND DIFFERENTIAL STAT 04/15/2025 4:[address] HEAD WO CONTRAST STAT 04/15/2025 4 :10 PM EDT ECG 12-LEAD STAT 04/15/2025 3:44 PM EDT LIPID PANEL WITH REFLEX TO DIRECT LDL Routine 03/30/2025 5:49 AM EDT HEMOGLOBIN A1C Routine 02/15/2025 2:07 PM EDT Type 2 diabetes mellitus with hypoglycemia without coma, with long-term current use of insulin ([facility] V24, [facility] V28) DIAGNOSTIC MAMMOGRAPHY INCLUDING CAD BILATERAL Routine 03/20/2024 11:09 AM EDT Mastodynia HEPATITIS C SCREENING Routine 03/17/2024 URINE ALBUMIN CREATININE RATIO Routine 03/17/2024 DIABETES FOOT EXAM Routine 02/28/2024 FALLS RISK ASSESSMENT Routine 07/17/2023 DIABETES EYE EXAM Routine 06/14/2023 DXA BONE DENSITY STUDY 1+ SITS AXIAL SKEL Routine 05/05/2018 11:02 AM EDT Pain in right ankle and joints of right foot COLONOSCOPY Routine 12/26/2015 from Last 3 Months or Most Recently Relevant to Health Maintenance Results * POC glucose manually resulted (05/25/2025 2:06 PM EDT) Glucose POC 345 mg/dL Blood Capillary blood specimen / Unknown 05/25/2025 2:06 PM EDT Katie GAINES POINT OF CARE TEST ENTER/EDIT OR DERABLES Final Result * (ABNORMAL) POCT Glucose, blood (04/26/2025 12:19 AM EDT) Only the most recent of3 resultswithin the time period is included. Glucose POCT 201(H) 70 - 100 mg/dL 04/26/2025 12:19 AM EDT [facility] Blood Capillary blood specimen / Unknown 04/26/2025 12:19 AM EDT 04/26/2025 12:21 AM EDT us Generic Provider Poct LAB POINT OF CARE TEST DOCKED DEVICE UNSOLICITED RESULTS Final Result [facility] [address] [place] [address], [place] [phone] * ECG-Annotated (04/16/2025) us Provider Onbase MD ECG ORDERABLES Final Result * Urinalysis with reflex microscopic and culture (04/15/2025 6:48 PM EDT) Specific [place] Urine 1.009 1.003 - 1.030 LAB URINALYSIS - AUTOMATED METHOD 04/15/2025 8:12 PM [facility] pH, Urine 6.5 5.0 - 8.0 pH LAB URINALYSIS - AUTOMATED METHOD 04/15/2025 8:12 PM [facility] Leukocytes, Urine Negative Negative LAB URINALYSIS - AUTOMATED METHOD 04/15/2025 8:12 PM [facility] Nitrite, Urine Negative Negative LAB URINALYSIS - AUTOMATED METHOD 04/15/2025 8:12 PM [facility] Protein, Urine Negative <=Trace mg/dL LAB URINALYSIS - AUTOMATED METHOD 04/15/2025 8:12 PM [facility] Glucose, Urine Negative Negative mg/dL LAB URINALYSIS - AUTOMATED METHOD 04/15/2025 8:12 PM [facility] Ketones, Urine Negative Negative mg/dL LAB URINALYSIS - AUTOMATED METHOD 04/15/2025 8:12 PM [facility] Urobilinogen, Urine 0.2 0.2 - 1.0 mg/dL LAB URINALYSIS - AUTOMATED METHOD 04/15/2025 8:12 PM EDT [facility] Bilirubin, Urine Negative Negative LAB URINALYSIS - AUTOMATED METHOD 04/15/2025 8:12 PM EDT [facility] Blood, Urine Negative Negative LAB URINALYSIS - AUTOMATED METHOD 04/15/2025 8:12 PM EDT [facility] Urine Urine specimen obtained by clean catch procedure / Unknown Non-blood Collection / Unknown 04/15/2025 6:48 PM EDT 04/15/2025 7:58 PM EDT [facility] URINE ORDERABLES Final Re sult [facility] [address] [place] [address], [place] [phone] * Gutierrez urine culture tube (04/15/2025 6:48 PM EDT) Extra Tube Hold for add-ons. 04/15/2025 9:01 PM EDT [facility] Comment:Auto resulted. Urine Urine specimen obtained by clean catch procedure / Unknown Non-blood Collection / Unknown 04/15/2025 6:48 PM EDT 04/15/2025 7:58 PM EDT [facility] URINE ORDERABLES Final Re sult [facility] [address] [place] [address], [place] [phone] * XR Chest 1 View (04/15/2025 4:49 PM EDT) Anatomical Region Laterality Modality Body Radiographic Naomi ging 04/15/2025 5:05 PM EDT Impressions 04/15/2025 5:06 PM EDT FINDINGS/IMPRESSION: Normal heart size and pulmonary vascularity. Lungs are clear and costophrenic angles are sharp. No acute osseous abnormality. -------- FINAL REPORT -------- Dictated By: Raj York Dictated Date: 04/15/2025 17:05 ET Assigned Physician: Raj York Reviewed and Electronically Signed By: Raj York Signed Date: 04/15/2025 17:06 ET Workstation ID: [id number] Transcribed By: Self Edit Transcribed Date: 04/15/2025 17:05 ET Narrative 04/15/2025 5:06 PM EDT XR CHEST 1 VIEW INDICATION: hypertension, dizziness TECHNIQUE: XR CHEST 1 VIEW COMPARISON: No priors available. Procedure Note Raj York MD - 04/15/2025 XR CHEST 1 VIEW INDICATION: hypertension, dizziness TECHNIQUE: XR CHEST 1 VIEW COMPARISON: No priors available. IMPRESSION: FINDINGS/IMPRESSION: Normal heart size and pulmonary vascularity. Lungsare clear and costophrenic angles are sharp. No acute osseousabnormality. -------- FINAL REPORT -------- Dictated By: Raj York Dictated Date: 04/15/2025 17:05 ET Assigned Physician: Raj York Reviewed and Electronically Signed By: Raj York Signed Date: 04/15/2025 17:06 ET Workstation ID: [id number] Transcribed By: Self Edit Transcribed Date: 04/15/2025 17:05 ET Lillie Brito MD IMG XR PROCEDURES Final Result * Troponin I High Sensitivity (04/15/2025 4:46 PM EDT) Pathologist [facility] High Sensitivity Troponin I 8 <=54 ng/L LAB CHEMISTRY METHOD 04/15/2025 5:46 PM EDT [facility] Blood Venous blood specimen / Unknown Venipuncture / Unknown 04/15/2025 4:46 PM EDT 04/15/2025 5:01 PM EDT Narrative [facility] - 04/15/2025 5:46 PM EDT High levels of biotin in samples may falsely decrease hsTroponin values. Use caution when interpreting hsTroponin results in patients taking biotin who exhibit renal impairment (eGFR <60) or in patients taking more than 20 mg/day of biotin. us Lillie Brito MD LAB BLOOD ORDERABLES Final Res ult [facility] [address] [place] [address], [place] [phone] * (ABNORMAL) CBC auto differential (04/15/2025 4:46 PM EDT) [facility] WBC 9.4 4.8 - 10.8 K/mcL LAB HEMETOLOGY METHOD 04/15/2025 5:10 PM EDT [facility] RBC 4.60 3.80 - 4.80 M/mcL LAB HEMETOLOGY METHOD 04/15/2025 5:10 PM EDT [facility] Hemoglobin 12.1 11.5 - 16.0 g/dL LAB HEMETOLOGY METHOD 04/15/2025 5:10 PM EDT [facility] Hematocrit 38.4 35.0 - 47.0 % LAB HEMETOLOGY METHOD 04/15/2025 5:10 PM EDT [facility] MCV 83.8 79.0 - 98.0 FL LAB HEMETOLOGY METHOD 04/15/2025 5:10 PM EDT [facility] MCH 26.4(L) 27.0 - 32.0 pcg LAB HEMETOLOGY METHOD 04/15/2025 5:10 PM EDT [facility] MCHC 31.5(L) 32.0 - 37.0 g/dL LAB HEMETOLOGY METHOD 04/15/2025 5:10 PM EDT [facility] RDW 12.8 11.0 - 15.0 % LAB HEMETOLOGY METHOD 04/15/2025 5:10 PM EDT [facility] Platelets 240 130 - 400 K/mcL LAB HEMETOLOGY METHOD 04/15/2025 5:10 PM EDT [facility] MPV 10.7 7.0 - 11.0 FL LAB HEMETOLOGY METHOD 04/15/2025 5:10 PM EDT [facility] NRBC 0.0 <1.0 % LAB HEMETOLOGY METHOD 04/15/2025 5:10 PM EDT [facility] NRBC Absolute 0.00 <0.10 K/mcL LAB HEMETOLOGY METHOD 04/15/2025 5:10 PM EDT [facility] Neutrophils Relative 45.6 % LAB HEMETOLOGY METHOD 04/15/2025 5:10 PM EDT [facility] Lymphocytes Relative 41.2 % LAB [facility]OLOGY [facility] Monocytes Relative 9.2 % LAB HEMETOLOGY METHOD 04/15/2025 5:10 PM EDT [facility] Eosinophils Relative 2.5 % LAB HEMETOLOGY METHOD [facility] Basophils Relative 0.7 % LAB HEMETOLOGY METHOD 04/15/2025 5:10 PM [facility] Immature Granulocytes Relative 0.8 % LAB HEMETOLOGY METHOD 04/15/2025 5:10 PM EDT [facility] Neutrophils Absolute 4.28 1.50 - 7.00 K/mcL LAB HEMETOLOGY METHOD 04/15/2025 5:10 PM EDT [facility] Lymphocytes Absolute 3.88 1.00 - 5.00 K/mcL LAB HEMETOLOGY METHOD 04/15/2025 5:10 PM EDT [facility] Monocytes Absolute 0.87 0.20 - 1.00 K/mcL LAB HEMETOLOGY METHOD 04/15/2025 5:10 PM EDT [facility] Eosinophils Absolute 0.24 0.00 - 0.50 K/mcL LAB HEMETOLOGY METHOD 04/15/2025 5:10 PM EDT [facility] Basophils Absolute 0.07 0.00 - 0.20 K/[facility] LAB HEMETOLOGY METHOD 04/15/2025 5:10 PM EDT [facility] Immature Granulocytes Absolute 0.08(H) 0.00 - 0.03 K/[facility] LAB HEMETOLOGY METHOD 04/15/2025 5:10 PM EDT [facility] Blood Venous blood specimen / Unknown Venipuncture / Unknown 04/15/2025 4:46 PM EDT 04/15/2025 5:01 PM EDT Lillie Brito MD LAB BLOOD ORDERABLES Final Res ult Performing Organization Address City/[facility]/ZIP Co de Phone Number [facility] [address] [place] [address], * B-Type Natriuretic Peptide (BNP) (04/15/2025 4:46 PM EDT) BNP 95 <=100 pcg/mL LAB CHEMISTRY METHOD 04/15/2025 5:53 PM EDT [facility] Blood Venous blood specimen / Unknown Venipuncture / Unknown 04/15/2025 4:46 PM EDT 04/15/2025 5:01 PM EDT Lillie Brito MD LAB BLOOD ORDERABLES Final Res ult [facility] [address] [place] [address], [place] [phone] * Magnesium (04/15/2025 4:46 PM EDT) Magnesium 1.9 1.9 - 2.6 mg/dL LAB CHEMISTRY METHOD 04/15/2025 5:38 PM EDT [facility] Comment:Hemolysis present Blood Venous blood specimen / Unknown Venipuncture / Unknown 04/15/2025 4:46 PM EDT 04/15/2025 5:01 PM EDT Lillie Brito MD LAB BLOOD ORDERABLES Final Res ult [facility] [address] [place] [address], * Basic metabolic panel (04/15/2025 4:46 PM EDT) Sodium 140 133 - 145 mmol/L LAB CHEMISTRY METHOD 04/15/2025 5:38 PM [facility] Potassium 3.7 3.5 - 5.5 mmol/L LAB CHEMISTRY METHOD 04/15/2025 5:38 PM [facility] Comment:Hemolysis present Chloride 109 96 - 110 mmol/L LAB CHEMISTRY METHOD 04/15/2025 5:38 PM [facility] CO2 26 21 - 32 mmol/L LAB CHEMISTRY METHOD 04/15/2025 5:38 PM [facility] Anion Gap 5 3 - 11 LAB CHEMISTRY METHOD 04/15/2025 5:38 PM [facility] Glucose 79 70 - 100 mg/dL LAB CHEMISTRY METHOD 04/15/2025 5:38 PM [facility] BUN 13 5 - 25 mg/dL LAB CHEMISTRY METHOD 04/15/2025 5:38 PM [facility] Creatinine 0.83 0.50 - 1.10 mg/dL LAB CHEMISTRY METHOD 04/15/2025 5:38 PM [facility] eGFR 76 >=60 mL/min/1. 73m2 LAB CHEMISTRY METHOD 04/15/2025 5:38 PM [facility] Comment:Calculation based on the Chronic Kidney Disease Epidemiology Collaboration (CKD-EPI) equation refit without adjustment for race. BUN/Creatinine Ratio 15.7 LAB CHEMISTRY METHOD 04/15/2025 5:38 PM EDT [facility] Calcium 9.7 8.5 - 10.5 mg/dL LAB CHEMISTRY METHOD 04/15/2025 5:38 PM EDT [facility] Blood Venous blood specimen / Unknown Venipuncture / Unknown 04/15/2025 4:46 PM EDT 04/15/2025 5:01 PM EDT us Lillie Brito MD LAB BLOOD ORDERABLES Final Res ult [facility] [address] [place] [address], [place] [phone] * CT Head wo Contrast (04/15/2025 4:10 PM EDT) Anatomical Region Laterality Modality Head and Neck Computed Tomogra phy 04/15/2025 4:19 PM EDT Impressions 04/15/2025 4:20 PM EDT Remote right MCA infarct. No acute findings. -------- FINAL REPORT -------- Dictated By: Raj York Dictated Date: 04/15/2025 16:19 ET Assigned Physician: Raj York Reviewed and Electronically Signed By: Raj York Signed Date: 04/15/2025 16:20 ET Workstation ID: [id number] Transcribed By: Self Edit Transcribed Date: 04/15/2025 16:19 ET Narrative 04/15/2025 4:20 PM EDT PROCEDURE: HEAD CT INDICATION: Dizziness, non-specific TECHNIQUE: CT of the head without intravenous contrast. Multiplanar reformats. The examination was performed utilizing dose reduction techniques. Total DLP 1070 COMPARISON: No priors available. FINDINGS: Remote right MCA infarct. Mild scattered periventricular and subcortical white matter hypodensities are most likely related to chronic small vessel ischemic change. CSF spaces commensurate for degree of volume loss. No hydrocephalus. Visualized paranasal sinuses are clear. Mastoid air cells are clear. No calvarial fracture. Procedure Note Raj York MD - 04/15/2025 PROCEDURE: HEAD CT INDICATION: Dizziness, non-specific TECHNIQUE: CT of the head without intravenous contrast. Multiplanarreformats. The examination was performed utilizing dose reductiontechniques. Total DLP 1070 COMPARISON: No priors available. FINDINGS: Remote right MCA infarct. Mild scattered periventricular and subcortical white matter hypodensitiesare most likely related to chronic small vessel ischemic change. CSF spaces commensurate for degree of volume loss. No hydrocephalus. Visualized paranasal sinuses are clear. Mastoid air cells are clear. No calvarial fracture. IMPRESSION: Remote right MCA infarct. No acute findings. -------- FINAL REPORT -------- Dictated By: Raj York Dictated Date: 04/15/2025 16:19 ET Assigned Physician: Raj York Reviewed and Electronically Signed By: Raj York Signed Date: 04/15/2025 16:20 ET Workstation ID: [id number] Transcribed By: Self Edit Transcribed Date: 04/15/2025 16:19 ET Lillie Brito MD IMG CT PROCEDURES Final Result * ECG 12 lead (04/15/2025 3:44 PM EDT) Ventricular Rate ECG 61 BPM GEMUSE Atrial Rate 61 BPM GEMUSE P-R Interval 130 ms GEMUSE QRS Duration 86 ms GEMUSE Q-T Interval 438 ms GEMUSE QTc 440 ms GEMUSE P Wave Anatone 22 degrees GEMUSE R Anatone -5 degrees GEMUSE T Anatone 3 degrees GEMUSE ECG Interpretation Normal sinus rhythm with sinus arrhythmia Inferior infarct , age undetermined Abnormal ECG When compared with ECG of 29-MAR-2025 13:21, Inferior infarct is now Present Confirmed by Vicenta SQUIRES YUFENG ([id number]) on 04/15/2025 8:13:44 PM GEMUSE 04/15/2025 3:44 PM EDT 04/15/2025 8:13 PM EDT Lillie Brito MD ECG ORDERABLES Final Result GEMUSE * Lipid panel with reflex to direct LDL (03/30/2025 5:49 AM EDT) Cholesterol 117 0 - 200 mg/dL LAB CHEMISTRY METHOD 03/30/2025 6:58 AM EDT [facility] Triglycerides 113 0 - 150 mg/dL LAB CHEMISTRY METHOD 03/30/2025 6:58 AM EDT [facility] HDL 49 >=40 mg/dL LAB CHEMISTRY METHOD 03/30/2025 6:58 AM EDT [facility] LDL Calculated 45 0 - 100 mg/dL LAB CHEMISTRY METHOD 03/30/2025 6:58 AM EDT [facility] Comment:Estimated LDL Calcul ated using equation: Total cholesterol - HDL cholesterol - (Triglycerides/5) VLDL Cholesterol Zak 22.6 mg/dL LAB CHEMISTRY METHOD 03/30/2025 6:58 AM EDT [facility] Non HDL Chol. (LDL+VLDL) 68 <145 mg/dL LAB CHEMISTRY METHOD [facility] Chol/HDL Ratio 2.4 0.0 - 4.4 LAB CHEMISTRY METHOD 03/30/2025 6:58 AM [facility] Blood Venous blood specimen / Unknown Venipuncture / Unknown 03/30/2025 5:49 AM EDT 03/30/2025 6:18 AM EDT us Nicole GAINES LAB BLOOD ORDERABLES Final Resu lt [facility] [address] [place] [address], * (ABNORMAL) Hemoglobin A1c (02/15/2025 2:07 PM EDT) Hemoglobin A1C 8.1(H) <6.5 % LAB CHEMISTRY METHOD 02/15/2025 9:10 PM EDT [facility] Mean Bld Glu Estim. 186 mg/dL LAB CHEMISTRY METHOD 02/15/2025 9:10 PM EDT [facility] Blood Venous blood specimen / Unknown Venipuncture / Unknown 02/15/2025 2:07 PM EDT 02/15/2025 2:07 PM EDT us Katie GAINES LAB BLOOD ORDERABLES Final Resul t [facility] ([facility] [address] [place] [address], [place] [phone] * DIAGNOSTIC MAMMOGRAPHY INCLUDING CAD BILATERAL (03/20/2024 11:09 AM EDT) Anatomical Region Laterality Modality Mammography 01/09/2024 2:44 PM EDT Narrative 03/20/2024 1:37 PM EDT This is a summary report. The complete report is available in the patient's medical record. If you cannot access the medical record, please contact the sending organization for a detailed fax or copy. Bilateral mammogram. Limited ultrasound. History pain in the left a breast and lump, according to the provider note. No specific localization of the clinical concern in the left breast was given in the electronic medical record. Patient does not have any pain or lump at the time of the appointment. She vaguely indicated that the lump was in the axillary tail of the left breast. Full-field digital 2D C views and tomosynthesis mammogram was performed as well as spot compression views of the left breast in an exaggerated laterally CC and MLO views. Compared with priors. Reviewed with CAD. Breast tissue is heterogeneously dense limiting sensitivity of mammography. There is no suspicious masses, microcalcifications or architectural distortion. No focal abnormalities were identified in the axillary tail of the left breast. Limited ultrasound of the left upper outer breast and axillary tail was performed. No cystic or solid masses or acoustic shadowing identified. Conclusions: No mammographic or ultrasonographic evidence for malignancy. Findings were explained to the patient. Follow-up mammogram at the time of the next annual screening. BI-RADS 1, negative. Procedure Note Patricia Mcnamara MD - 06/03/2024 This is a summary report. The complete report is available in thepatient's medical record. If you cannot access the medical record, pleasecontact the sending organization for a detailed fax or copy. Bilateral mammogram. Limited ultrasound. History pain in the left a breast and lump, according to the providernote. No specific localization of the clinical concern in the left breastwas given in the electronic medical record. Patient does not have anypain or lump at the time of the appointment. She vaguely indicated thatthe lump was in the axillary tail of the left breast. Full-field digital 2D C views and tomosynthesis mammogram was performed aswell as spot compression views of the left breast in an exaggeratedlaterally CC and MLO views. Compared with priors. Reviewed with CAD. Breast tissue is heterogeneously dense limiting sensitivity ofmammography. There is no suspicious masses, microcalcifications orarchitectural distortion. No focal abnormalities were identified in theaxillary tail of the left breast. Limited ultrasound of the left upper outer breast and axillary tail wasperformed. No cystic or solid masses or acoustic shadowing identified. Conclusions: No mammographic or ultrasonographic evidence for malignancy.Findings were explained to the patient. Follow-up mammogram at the timeof the next annual screening. BI-RADS 1, negative. Result [facility] Jose Rafael AGINES IMG BI PROCEDURES Final Result * Urine Albumin Creatinine Ratio (03/17/2024) [facility] Urine Albumin Creatinine Ratio abstracted Result [facility] HEALTH MAINTENANCE Final Result * Hepatitis C Screening (03/17/2024) [facility] Hepatitis C Screening abstracted Result [facility]INTENAN[facility] Final Result * Diabetes Foot Exam (02/28/2024) [facility] Diabetes: Annual Foot Exam abstracted Result [facility] MAINTENANCE Final Result * Falls Risk Assessment (07/17/2023) [facility] Falls Risk Assessment abstracted Result [facility] MAINTENANCE Final Result * Diabetes Eye Exam (06/14/2023) Diabetes: Annual Retina Eye Exam abstracted us Historical Provider HEALTH MAINTENANCE Final Result * DXA BONE DENSITY STUDY 1+ SITS AXIAL SKEL (05/05/2018 11:02 AM EDT) Anatomical Region Laterality Modality Bone Densitometr y 02/26/2018 10:4 1 AM EDT Narrative 05/05/2018 1:40 PM EDT BONE DENSITY Lumbar Spine T-score is -1.1 (SD relative to 20-29 y/o adult) Z-score is +0.6 (SD relative to age matched peers) This is consistent with osteopenia by criteria defined by the WHO. Left Hip T-score is +0.7 Z-score is +1.6 This is normal by criteria defined by the WHO. Comparison exam(s): significant decrease in bone density of lumbar spine when compared to most recent bone density examination Confidence level is +/-95%. Impression: Based on the World Health Organization criteria, Jacqueline Guerrero should be classified as having osteopenia. This patient has a 4.8% risk of major osteoporotic fracture and a 0.2% risk of hip fracture over the next 10 years. (World Health Organization Fracture Risk Assessment) [facility] Department of Internal Medicine recommends using National Osteoporosis Foundation (NOF) guidelines in treatment decisions related to osteoporosis. NOF guidelines suggest considering treatment for postmenopausal women and men aged 50 or older presenting with the following: History of hip or vertebral fracture. T-score less than or equal to -2.5 (DXA) at the femoral neck, total hip, or spine, after appropriate evaluation to exclude secondary causes. Low bone mass (T-score between -1.0 and -2.5 at the femoral neck or spine) AND a 10-year probability of a hip fracture greater than or equal to 3% OR a 10-year probability of a major osteoporosis-related fracture greater than or equal to 20% based on the [place]-adapted WHO algorithm Please note that all treatment decisions require clinical judgment and consideration of individual patient factors, including patient preferences, co-morbidities, previous drug use, risk factors not captured in the FRAX model (e.g., frailty, falls, vitamin D deficiency, increased bone turnover, interval significant decline in bone density) and possible under- or over-estimation of fracture risk by FRAX. Procedure Note Grover Cha MD - 08/07/2022 BONE DENSITY Lumbar Spine T-score is -1.1 (SD relative to 20-29 y/o adult) Z-score is +0.6 (SD relative to age matched peers) This is consistent with osteopenia by criteria defined by the WHO. Left Hip T-score is +0.7 Z-score is +1.6 This is normal by criteria defined by the WHO. Comparison exam(s): significant decrease in bone density of lumbar spinewhen compared to most recent bone density examination Confidence level is +/-95%. Impression: Based on the World Health Organization criteria, Jacqueline Guerrero shouldbe classified as having osteopenia. This patient has a 4.8% risk of majorosteoporotic fracture and a 0.2% risk of hip fracture over the next 10years. (World Health Organization Fracture Risk Assessment) The [facility] Department of Internal Medicine recommendsusing National Osteoporosis Foundation (NOF) guidelines in treatmentdecisions related to osteoporosis. NOF guidelines suggest consideringtreatment for postmenopausal women and men aged 50 or older presentingwith the following: History of hip or vertebral fracture. T-score less than or equal to -2.5 (DXA) at the femoral neck, total hip,or spine, after appropriate evaluation to exclude secondary causes. Low bone mass (T-score between -1.0 and -2.5 at the femoral neck or spine)AND a 10-year probability of a hip fracture greater than or equal to 3% ORa 10-year probability of a major osteoporosis-related fracture greaterthan or equal to 20% based on the [place]-adapted WHO algorithm Please note that all treatment decisions require clinical judgment andconsideration of individual patient factors, including patientpreferences, co-morbidities, previous drug use, risk factors not capturedin the FRAX model (e.g., frailty, falls, vitamin D deficiency, increasedbone turnover, interval significant decline in bone density) and possibleunder- or over-estimation of fracture risk by FRAX. 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 Health Care Decision (hx) 09/19/2023 AD RM DIRECTIVE Health Care Decision (hx) 09/19/2023 AD RM DIRECTIVE Health Care Decision (hx) 09/19/2023 AD RM DIRECTIVE Health Care Decision (hx) 09/19/2023 AD RM DIRECTIVE Health Care Decision (hx) 09/19/2023 AD RM DIRECTIVE Health Care Decision (hx) 09/16/2023 AD RM DIRECTIVE Health Care Decision (hx) 05/07/2023 HE ALTH CARE PROXY Health Care Decision (hx) 05/07/2023 HE ALTH CARE PROXY Health Care Decision (hx) 05/07/2023 HE ALTH CARE PROXY Health Care Decision (hx) 05/07/2023 HE ALTH CARE PROXY Health Care Decision (hx) 05/07/2023 HE ALTH CARE PROXY Health Care Decision (hx) 05/07/2023 HE ALTH CARE PROXY Health Care Decision (hx) 05/07/2023 HE ALTH CARE PROXY Health Care Decision (hx) 05/07/2023 HE ALTH CARE PROXY Health Care Decision (hx) 05/07/2023 HE ALTH CARE PROXY Health Care Decision (hx) 05/07/2023 HE ALTH CARE PROXY Health Care Decision (hx) 05/07/2023 HE ALTH CARE PROXY Health Care Decision (hx) 05/07/2023 HE ALTH CARE PROXY Health Care Decision (hx) 05/01/2023 HE ALTH CARE PROXY Health Care Decision (hx) 05/01/2023 HE ALTH CARE PROXY Health Care Decision (hx) 05/01/2023 HE ALTH CARE PROXY Health Care Decision (hx) 05/01/2023 HE ALTH CARE PROXY Health Care Decision (hx) 05/01/2023 HE ALTH CARE PROXY Health Care Decision (hx) 05/01/2023 HE ALTH CARE PROXY Health Care Decision (hx) 05/01/2023 HE ALTH CARE PROXY Health Care Decision (hx) 05/01/2023 HE ALTH CARE PROXY Health Care Decision (hx) 05/01/2023 HE ALTH CARE PROXY Health Care Decision (hx) 05/01/2023 HE ALTH CARE PROXY Health Care Decision (hx) 05/01/2023 HE ALTH CARE PROXY Health Care Decision (hx) 05/01/2023 HE ALTH CARE PROXY Health Care Decision (hx) 08/03/2016 AD RM DIRECTIVE Health Care Decision (hx) 08/03/2016 AD RM DIRECTIVE Health Care Decision (hx) 08/03/2016 HE ALTH CARE PROXY Health Care Decision (hx) 08/03/2016 AD RM DIRECTIVE Health Care Decision (hx) 08/03/2016 AD RM DIRECTIVE Health Care Decision (hx) 08/03/2016 AD RM DIRECTIVE Health Care Decision (hx) 08/03/2016 AD RM DIRECTIVE Health Care Decision (hx) 08/03/2016 AD RM DIRECTIVE Health Care Decision (hx) 08/03/2016 AD RM DIRECTIVE Health Care Decision (hx) 08/03/2016 AD RM DIRECTIVE Health Care Decision (hx) 08/03/2016 AD RM DIRECTIVE Health Care Decision (hx) 08/03/2016 AD RM DIRECTIVE Health Care Decision (hx) 08/03/2016 AD RM DIRECTIVE Health Care Decision (hx) 08/03/2016 AD RM DIRECTIVE Health Care Decision (hx) 08/03/2016 AD RM DIRECTIVE Health Care Decision (hx) 08/03/2016 AD RM DIRECTIVE Health Care Decision (hx) 08/03/2016 AD RM DIRECTIVE Health Care Decision (hx) 08/03/2016 AD RM DIRECTIVE Health Care Decision (hx) 08/03/2016 AD RM DIRECTIVE Health Care Decision (hx) 08/03/2016 AD RM DIRECTIVE Health Care Decision (hx) 08/03/2016 AD RM DIRECTIVE Health Care Decision (hx) 08/03/2016 AD RM DIRECTIVE Health Care Decision (hx) 08/03/2016 AD RM DIRECTIVE Health Care Decision (hx) 08/03/2016 AD RM DIRECTIVE Health Care Decision (hx) 08/03/2016 AD RM DIRECTIVE Health Care Decision (hx) 08/03/2016 AD RM DIRECTIVE Health Care Decision (hx) 08/03/2016 AD RM DIRECTIVE * Full Code - Confirmed (Latest Code Status on File) Date Activated Date Inactivated Comments 03/29/2025 3:58 PM 03/30/2025 7:[address] atus was ascertained in the following way: Code status discussion: discussion with patient To update the patient's code status, place a code status order. Do not modify or discontinue any currently active code status orders. * Full Code - Default Date Activated Date Inactivated Comments 03/29/2025 2:55 PM 03/29/2025 3:58 PM This is orde r is used when code status has not been discussed with the patient, or code status is otherwise unknown/unconfirmed To update the patient's code status, place a code status order. Do not modify or discontinue any currently active code status orders. * Full Code - Confirmed Date Activated Date Inactivated Comments 10/09/2024 10:00 PM 10/10/2024 7:41 PM This code s tatus was ascertained in the following way: Code status discussion: discussion with patient To update the patient's code status, place a code status order. Do not modify or discontinue any currently active code status orders. * Full Code - Default Date Activated Date Inactivated Comments 10/09/2024 7:09 PM 10/09/2024 10:00 PM This is ord er is used when code status has not been discussed with the patient, or code status is otherwise unknown/unconfirmed To update the patient's code status, place a code status order. Do not modify or discontinue any currently active code status orders. * Full Code Date Activated Date Inactivated Comments 06/19/2024 8:23 PM 06/25/2024 5:42 PM Cutover orde r - Refer to legacy medical record for details and original code status order details. Care Teams Office Worker Relationship Specialty Start Date End Date Lv Bunch MD [address] [place] [address] PCP - General Internal Medicine 03/02/06
--- OUTSIDE RECORDS SUMMARY | 2025-07-14 17:47 | XMS_ITS | Data Portability ---
Author Organization [place] - [facility], [facility] Address [address] [place] [id number] Care Team Providers Care Network Systems Consultant Name Role Phone ROBERTO BRAGG Primary Care Provider Assessment Encounter Date Assessment Date Assessment LastModified by Organization Details LastModified Time 01/28/2025 01/28/2025 Vocal changes are most likely secondary to her strokes. FIberoptic laryngoscopy was benign with normal function of both vocal cords and no lesions. Offered referral to speech pathology. There is likely some element of poor breath support and muscle tension that also plays a role in her vocal limitations. [email or web address] Not available 01/28/2025 11:52:08 Plan of Treatment Reminders Order Date Submit Date Provider Last Modified By Organization Details Last Modified Time Details Appointments None recorded. Lab None recorded. Referral speech therapy referral [facility]24 [email or web address] [address] [place] [address], [place], [address], 10:44:07 Procedures None recorded. Surgeries None recorded. Imaging None recorded. Medication Orders None recorded. Patient TargetsNo targets recorded. Patient InstructionsNo instructions recorded. Reason for Referral Referring Physician: David Leigh, Otolaryngology, Encounter Date: 01/28/2025 Problems Name Problem SNOMED Code Status Onset Date Resolution Date Notes Provider Name and Address Organization Details Recorded Time Hoarse 59789465 Active 2024 DAVID LEIGH MD [address], [address] [facility] [place] - [facility] 11:50:01 Cerebrovascula r accident 628955921 Active 2024 DAVID LEIGH MD 100 [facility], [place], [address], [place] - [facility] 11:50:48 Problem Notes None recorded. Procedures Surgical History Date Name Laterality Status Provider Name and Address Organization Details Recorded Time FOL_DP completed DAVID LEIGH MD [address] [address], [place], [address], [place] - [facility] 01/27/2025 12:55:28 admission to stroke unit completed AMARA WHITE [place] - [facility] 01/28/2025 11:31:00 Imaging Results None recorded. Procedure Notes None recorded. Medical Equipment None Reported. Allergies Allergen ID Allergen Name Allergen Category Reaction Reaction Severity Criticality Documentation Date Start Date Code Code System Note Provider Name and Address Organization Details Recorded Time [id number] Flagyl medicatio n Not available Not available Not available 01/28/2025 6 RxNorm AMARA pool [place] - [facility] 11:28:24 015530 Product containin g penicilli n (product) medicatio n Not available Not available Not available 01/28/2025 [id number] SNOMED AMARA pool [place] - [facility] 11:28:33 656643 Iodinated contrast media (substanc e) medicatio n Not available Not available Not available 01/28/2025 91663 2004 SNOMED AMARA pool [place] - [facility] 11:28:46 Medications Name Sig Start Date Stop Date Status Note LastModified by Organization Details LastModified Time latanoprost 0.005 % eye drops INSTILL 1 DROP IN EACH EYE DAILY AT BEDTIME active Not Available Not Available No t Available atorvastati n 20 mg tablet TAKE 1 TABLET BY MOUTH AT BEDTIME active Not Available Not Available No t Available azithromyci n 250 mg tablet active Not Available Not Available Not Available hydrocodone 5 mg-acetamin ophen 325 mg tablet TAKE 1 TABLET BY MOUTH TWICE DAILY NEEDED FOR PAIN 01/28 completed Not Available Not Available Not Available amlodipine 5 mg tablet TAKE 1 TABLET BY MOUTH DAILY active Not Available Not Available No t Available acyclovir 400 mg tablet active Not Available Not Available Not Available valacyclovi r 500 mg tablet TAKE 1 TABLET BY MOUTH TWICE DAILY FOR 3 DAYS WITH ONSET OF OUTBREAK active Not Available Not Available No t Available butalbital- acetaminoph en-caffeine 50 mg-325 mg-40 mg tablet TAKE 1 TABLET BY MOUTH EVERY 4 HOURS NEEDED FOR HEADACHE active Not Available Not Available No t Available lamotrigine 25 mg tablet TAKE ONE (1) TABLET BY MOUTH TWICE DAILY *EMERGENC Y REFILL* active Not Available Not Available No t Available ketorolac 0.5 % eye drops INSTILL 1 DROP INTO THE RIGHT EYE FOUR TIMES DAILY 2 DAYS AFTER LASER THEN STOP 01/28 completed Not Available Not Available Not Available famotidine 20 mg tablet TAKE 1 TABLET BY MOUTH 2 TIMES DAILY NEEDED FOR HEARTBURN . active Not Available Not Available No t Available prednisolon e acetate 1 % eye drops,suspe nsion INSTILL 1 DROP INTO THE RIGHT EYE FOUR TIMES DAILY FOR 4 DAYS AFTER LASER THEN STOP 01/28 completed Not Available Not Available Not Available levetiracet am 250 mg tablet TAKE 1 TABLET BY MOUTH EVERY 12 HOURS active Not Available Not Available No t Available pantoprazol e 40 mg tablet,nilsa yed release TAKE 1 TABLET BY MOUTH TWICE DAILY.ANN E ON EMPTY STOMACH THEN EAT TO ACTIVATE active Not Available Not Available No t Available hyoscyamine sulfate 0.125 mg tablet TAKE 1 TABLET BY MOUTH EVERY 4 HOURS NEEDED FOR CRAMPING active Not Available Not Available No t Available metformin 1,000 mg tablet TAKE 1 TABLET BY MOUTH TWICE DAILY active Not Available Not Available No t Available brimonidine 0.2 % eye drops INSTILL 1 DROP IN BOTH EYES THREE TIMES DAILY active Not Available Not Available No t Available omeprazole 20 mg capsule,del ayed release TAKE ONE (1) CAPSULE BY MOUTH ONCE DAILY IN THE MORNING ON AN EMPTY STOMACH, WAIT 30 MINUTES THEN EAT TO ACTIVATE MEDICATIO N active Not Available Not Available No t Available dorzolamide 22.3 mg-timolol 6.8 mg/mL eye drops INSTILL 1 DROP IN BOTH EYES THREE TIMES DAILY active Not Available Not Available No t Available hydrochloro thiazide 25 mg tablet TAKE 1 TABLET BY MOUTH ONCE DAILY active Not Available Not Available No t Available albuterol sulfate HFA 90 mcg/actuati on aerosol inhaler INHALE 2 PUFFS BY MOUTH EVERY 4 HOURS NEEDED FOR WHEEZING active Not Available Not Available No t Available lisinopril 40 mg tablet TAKE 1 TABLET (40 MG TOTAL) BY MOUTH 1 (ONE) TIME EACH DAY. active Not Available Not Available No t Available ciclopirox 0.77 % topical gel APPLY TOPICALLY TO THE AFFECTED AREA TWICE DAILY active Not Available Not Available No t Available ketorolac 0.4 % eye drops INSTILL 1 DROP IN RIGHT EYE THREE TIMES DAILY active Not Available Not Available No t Available Alcohol Prep Pads USE TO WIPE AREA FOR INSULIN active Not Available Not Available No t Available BD Ultra-Fine Mini Pen Needle 31 gauge x 3/16 USE TO INJECT INSULIN THREE TIMES DAILY active Not Available Not Available No t Available Levemir FlexPen 100 unit/mL (3 mL) solution subcutaneou s insulin pen ADMINISTE R 60 UNITS UNDER THE SKIN AT BEDTIME active Not Available Not Available No t Available BD Ultra-Fine Short Pen Needle 31 gauge x 5/16 USE DIRECTED THREE TIMES DAILY active Not Available Not Available No t Available FreeStyle Lite Strips TEST BLOOD GLUCOSE THREE TIMES DAILY active Not Available Not Available No t Available Humalog KwikPen (U-100) Insulin 100 unit/mL subcutaneou s active Not Available Not Available Not Available Eliquis 5 mg tablet TAKE 1 TABLET BY MOUTH TWICE DAILY active Not Available Not Available No t Available Basaglar KwikPen U-100 Insulin 100 unit/mL (3 mL) subcutaneou s ADMINISTE R 60 UNITS UNDER THE SKIN DAILY active Not Available Not Available No t Available aspirin 81 mg capsule Take 1 capsule every day by oral route. active Not Available Not Available No t Available Vitals Date Recorded Body height Body mass index (BMI) Body weight Provider Name and Address Organization Details Last Updated DateTime 01/28/2025 160.02 cm 30.1 kg/m2 77328.7 g AMARA WHITE [place] - [facility] 01/28/2025 11:28:07 Social History None recorded. Functional Status Question Answer Note LastModified by Organization D etails LastModified Time What is your level of alcohol consumption? None [email or web address] Information not available 01/28/2025 Mental Status None recorded. Family History Nothing Reported. Medical History Condition Response Diabetes Y Arthritis Y Stroke Y Gynecological HistoryNo gynecological history recorded. Obstetrics History GPAL:G 0 P 0 0 0 0 Past Encounters Encounter ID Performer Location Encounter Start Date Encounter Closed Date Diagnosis/Indication Diagnosis SNOMED-CT Code Diagnosis ICD10 Code Diagnosis IMO Codes Diagnosis Note [id number] DAVID LEIGH MD [facility] [address] [address] 01/28/2025 10:39:43 01/28/2025 11:53:52 Hoarse [id number] R49.0 337141 Cerebrovas cular accident [id number] I63.9 [id number] Health Concerns Section Related Observation LastModified by Organization Detai ls LastModified Time None Recorded Concern Status LastModified by Organization Details LastModified Time None Recorded Advance Directives Directive None Recorded Payers Insurance Date Sequence Insurance Name Policy Number Policy Diehl Covered Member ID Diehl Member ID Guarantor Name 01/25/2025 1 [place] [id number] Cathy Esquivel [id number] Jacqueline Esquivel Notes Date Note Type Note Provider Name and Address Organization Details Recorded Time 01/28/2025 text/html ROS as noted in the HPI hoarseunable to project her voice since second strokechoke on saliva, foods - worked with swallow therapy for a limited timeno lung pathology pmhx - multiple CVA between 02/2023 - 08/2024, DVT 04/2015, chronic migraine (uses sunglasses), DAVID LEIGH MD [address] [place] [address], [phone], [facility] - [facility] 01/28/2025 11:52:33 OBGyn Episode No OBEpisode recorded.
== END 2025-07-14 16:03 | disposition home or self-care (01) ==
LOC: HO.HSM 15:33
PROVIDERS: PCP Internal Medicine; Visit Provider Psychiatry & Neurology Neurology
DX: G56.00 Carpal tunnel syndrome, unspecified upper limb (principal); I63.9 Cerebral infarction, unspecified; G31.84 Mild cognitive impairment of uncertain or unknown etiology; G40.909 Epilepsy, unspecified, not intractable, without status epilepticus; G44.40 Drug-induced headache, not elsewhere classified, not intractable
CPT/HCPCS: 99214